=== PATIENT | male | born 1965 | race Hispanic/Latino ===

== ENCOUNTER 2017-10-21 18:31 | Emergency (ER) | payer SELFPAY | END 2017-10-21 20:00 | disposition home or self-care (01) | LOC: MADERS 18:31 | DX: K40.90 Unilateral inguinal hernia, without obstruction or gangrene, not specified as recurrent (principal); F17.210 Nicotine dependence, cigarettes, uncomplicated | CPT/HCPCS: 99283 ==

== ENCOUNTER 2017-12-10 15:35 | Outpatient (CLI) | payer OTHER ==
--- NOTE | 2017-12-10 17:09 | RAD ---
ACUTE ABDOMINAL SERIES 12/10/17 INDICATION: Status post hernia surgery with three weeks of bloating and abdominal pain. FINDINGS: There is some mild subsegmental volume loss within both lung bases. Bowel gas pattern is nonobstructe d. No definite free air is noted. No definite acute osseous abnormality is noted. IMPRESSION: 1. Nonobstructed bowel gas pattern. 2. Mild subsegmental atelectasis involving both lower lobes. POS: [facility]
== END 2017-12-10 15:36 | disposition home or self-care (01) ==
LOC: MADRAD 15:35
PROVIDERS: ATTEND Specialist
DX: R10.9 Unspecified abdominal pain (principal); J98.11 Atelectasis
CPT/HCPCS: 74022

== ENCOUNTER 2017-12-12 15:09 | Emergency (ER) | payer OTHER, SELFPAY ==
[~2017-12-12 15:09] MED LIST: Iopamidol 370 76% 100 ML VIAL ONE; Sodium Chloride 0.9% 1,000 ML BAG ONE
[2017-12-12] MEDS ORDERED: Ondansetron HCl/PF 4 MG/2 ML Vial ONE (15:54)
[2017-12-12] MEDS ORDERED: Ketorolac Tromethamine 30 MG/ML VIAL ONE (15:54)
[2017-12-12 16:03] LABS: #Basophils 0.1 thou/uL (0.0-0.2); #Eosinphils 0.1 thou/uL (0.0-0.7); #Lymphocytes 0.7 thou/uL (1.20-3.40); #Monocytes 1.2 thou/uL (0.11-0.59); #Neutrophils 14.8 thou/uL (1.40-6.50); %Basophils 0.8 % (0.0-1.0); %Eosinophils 0.5 % (0.0-10.0); %Lymphocytes 4.1 % (21.0-51.0); %Neutrophils 87.6 % (42.0-75.0); Mean Corpuscular HGB CONC 33.2 g/dL (32.0-36.0); Mean Corpuscular Hemoglobin 32.2 pg (27.0-31.0); Mean Corpuscular Volume 97.2 fl (80.0-94.0); Mean Platelet Volume 7.2 fL (7.4-10.4); Platelet Count 256 thou/uL (130-400); RBC Distribution Width 15.6 % (11.5-14.5); Red Blood Cell (RBC) Count 3.72 mill/uL (4.70-6.10); White Blood Cell (WBC) Count 16.9 thou/uL (4.8-10.8)
[2017-12-12 16:20] LABS: ALT (SGPT) 63 U/L (8-55); AST (SGOT) 256 U/L (5-34); Albumin 2.7 g/dL (3.5-5.0); Alkaline Phosphatase 743 U/L (40-150); Anion Gap 19 mmol/L (10-20); BUN (Urea Nitrogen) 24 mg/dL (8.4-25.7); Bilirubin, Total 13.6 mg/dL (0.2-1.2); CK (CPK) 282 U/L (30-200); Calc. Creatinine Clearance 0 mL/min (70-130); Calcium 8.3 mg/dL (7.8-10.44); Carbon Dioxide 25 mmol/L (22-29); Chloride 90 mmol/L (98-107); Estimated GFR-MDRD 69; Globulin 4.3 g/dL (2.4-3.5); Glucose 115 mg/dL (70-105); Lipase 25 U/L (8-78); Potassium 5.1 mmol/L (3.5-5.1); Sodium 129 mmol/L (136-145)
[2017-12-12 16:22] LABS: Troponin I Less than 0.010 ng/mL (< 0.028)
--- NOTE | 2017-12-12 16:54 | RAD ---
ONE VIEW CHEST 12/12/17 HISTORY: Ascites. Bloating. COMPARISON: 12/10/17 FINDINGS: Portable upright chest: Diminished lung volumes. Pulmonary vessels and hilum are normal. Costophrenic angles are clear. No ma sses or consolidation. No pneumothorax or osseous abnormalities. IMPRESSION: No acute cardiopulmonary process. POS: [facility]
--- NOTE | 2017-12-12 18:34 | CT ---
CT ABDOMEN AND PELVIS WITH IV CONTRAST 12/12/17 Multiple axial tomograms obtained through the abdomen and pelvis with IV enhancement. HISTORY: Ascites, jaundice, hepatomegaly, abdominal distention and pain. No comparison studies. FINDINGS: Images through the lung bases reveal a 10 mm nodule in the left lung base. Another 5 mm nodule in the left lung base adjacent to the diaphragm. Another 7 mm nodule in the posterior right lung base. The liver is enlarged. There are numerous diffuse low density lesions throughout the liver consistent with diffuse hepatic metastasis. These are too numerous to count and the larger lesions in the upper liver measure up to 6 cm. There is moderate ascites with fluid in all quadrants and fluid into the p efrain. Spleen and pancreas appear unremarkable. Adrenal glands and kidneys are unremarkable. Small bowel loops are normal caliber. The appendix is normal. There is stool seen throughout the colo n. There is an area of mural thickening in the upper sigmoid colon over a length of approximately 6 cm. neoplasm at this location should be excluded with endoscopy. There is enlarged periaortic lymph node in the upper abdomen to the left at the level of the left bib al vein measuring 2.5 cm. Aorta is normal caliber. IMPRESSION: 1. Numerous low density lesions throughout the liver, most consistent with diffuse hepatic metas tases. 2. Moderate ascites with fluid in all quadrants and the deep pelvis. 3. Several small nodules seen in the lung bases. Metastasis must be considered and further evalu ation with chest CT is recommended electively. 4. Abdominal adenopathy. 5. There is a focal area of mural thickening and luminal narrowing in the upper sigmoid colon. N eoplasm should be excluded with endoscopy. 6. 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 Discussed with Dr. Up POS: [facility]
[2017-12-12] MEDS ORDERED: MORPHINE 10 MG/ML SYRINGE ONE (18:50)
== END 2017-12-12 19:07 | disposition short-term general hospital (02) ==
LOC: MADERS 15:09
DX: R18.0 Malignant ascites (principal); E80.6 Other disorders of bilirubin metabolism; C18.7 Malignant neoplasm of sigmoid colon; C78.00 Secondary malignant neoplasm of unspecified lung; C78.7 Secondary malignant neoplasm of liver and intrahepatic bile duct; F17.210 Nicotine dependence, cigarettes, uncomplicated
CPT/HCPCS: 71045; 74177; 80053; 82150; 82550; 82553; 83605; 83690; 83880; 84484; 85025; 96361; 96374; 96375; J1885; J2270; J2405; J7050